=== PATIENT | female | born 1940 | race Caucasian/White ===

== ENCOUNTER → 2023-10-30 08:40 | Outpatient (REF) | payer MEDICARE, SELFPAY ==
[2023-10-30 12:44] LABS: % Basophils 1.3 % (0-2); % Eosinophils 1.3 % (0-6); % Immature Granulocytes 0.4 % (0-0.5); % Lymphocytes 23.5 % (20.5-51.1); % Monocytes 8.4 % (1.7-9.3); % Neutrophils 65.1 % (42.2-75.2); Absolute Basophils 0.1 10^3/uL (0-0.2); Absolute Eosinophils 0.1 10^3/uL (0-0.7); Absolute Lymphocytes 1.3 10^3/uL (1.2-3.4); Absolute Monocytes 0.5 10^3/uL (0.1-0.6); Absolute Neutrophils 3.6 10^3/uL (1.4-6.5); Hematocrit 42.1 % (37.0-47.0); Hemoglobin 14.2 g/dL (12.0-16.0); Mean Corp Hgb Conc. 33.7 g/dL (33.0-37.0); Mean Corpuscular Hgb 29.9 pg (27.0-31.0); Mean Corpuscular Volume 88.6 fL (81.0-99.0); Mean Platelet Volume 10.3 fL (7.4-10.4); Nucleated Red Blood Cells % 0 %; Platelet Count 277 10^3/uL (130-400); Red Blood Cell Count 4.75 10^6/uL (4.20-5.40); Red Cell Dist. Width 12.9 % (11.5-14.5); White Blood Cell Count 5.6 10^3/uL (4.8-10.8)
[2023-10-30 13:38] LABS: ALT (SGPT) 19 U/L (0-35); AST (SGOT) 25 U/L (14-36); Albumin 4.2 g/dl (3.5-5.0); Alkaline Phosphatase 83 U/L (38-126); Blood Urea Nitrogen 12 mg/dl (7-17); Calcium 9.3 mg/dl (8.4-10.2); Carbon Dioxide 29 mmol/L (22-30); Chloride 100 mmol/L (98-107); Glucose 107 mg/dl (70-99); Iron 116 ug/dl (37-170); Potassium 4.4 mmol/L (3.5-5.1); Sodium 137 mmol/L (135-145); Total Bilirubin 0.7 mg/dl (0.2-1.3); Total Cholesterol 236 mg/dl (50-199); Total Protein 6.7 g/dl (6.3-8.2); Triglyceride 76 mg/dl (10-149); Very Low Density Lipoprotein 15 mg/dl (0-30); eGFR > 60.00
[2023-10-30 13:42] LABS: Glycohemoglobin (HgbA1c) 5.7 % (4.0-5.6)
[2023-10-30 13:47] LABS: Percent Saturation 32 % (20-50); Total Iron Binding Capacity 362 ug/dl (265-497)
[2023-10-30 13:49] LABS: HDL Cholesterol 113 mg/dl; LDL Cholesterol, Calculated 108 mg/dl
[2023-10-30 13:51] LABS: Free T4 1.03 ng/dl (0.78-2.19); Vitamin D, 25-OH*** 14.9 ng/mL (30-80)
[2023-10-30 14:05] LABS: TSH 1.91 uIU/ml (0.47-4.68)
[2023-10-30 14:12] LABS: Ferritin 45.2 ng/ml (11.1-264.0)
== END ==
LOC: HWLAB 08:40
PROVIDERS: ATTENDING PHYSICIAN Family Medicine
DX: I10 Essential (primary) hypertension (principal); E78.00 Pure hypercholesterolemia, unspecified; R73.01 Impaired fasting glucose; M81.0 Age-related osteoporosis without current pathological fracture; D50.9 Iron deficiency anemia, unspecified
CPT/HCPCS: 36415; 80053; 80061; 82306; 82728; 83036; 83540; 83550; 84439; 84443; 85025

== ENCOUNTER → 2024-01-23 06:31 | Outpatient (REF) | payer MEDICARE, SELFPAY | LOC: RAD 06:31 | PROVIDERS: ATTENDING PHYSICIAN Family Medicine | DX: I73.9 Peripheral vascular disease, unspecified (principal); R05.9 Cough, unspecified | CPT/HCPCS: 93922; 93925 ==